=== PATIENT | male | born 1950 | race African-American/Black ===

== ENCOUNTER → 2018-12-04 | Outpatient (CLI) | payer OTHER, BC ==
[~2018-12-04] VITALS: Ht 175.3 cm; Wt 88.2 kg
[~2018-12-04] MED LIST: ALEVE220 M1 PO; ALEVE220 MG PO; AMBEREN PO; ATORVASTATIN CA10 MG PO; AVAPRO300 MG PO; CADUET 10 MG-11 EACH PO; DIOVAN320 MG PO; LOSARTAN-HCTZ1 EAC2 PO; MICARDIS 20MG T20 M1 PO; TOPROL XL25 MG PO
--- NOTE | ~2018-12-04 | HPC ---
[facility] [place] [address] PAIN MANAGEMENT CONSULTATION Name: DORINDA DUNN Room #: REG Roni JensenMaura#: [id number] Admission: 12/04/18 Attend Phys: Garry Hong DO Discharge: Date of : 54 Report #: [id number] THIS REPORT FOR: //name// CC: Garry Schroeder MD DATE OF SERVICE: 12/04/2018 REFERRING PHYSICIAN: Tanja Schroeder M.D. CHIEF COMPLAINT: Low back pain and right lower extremity pain with paresthesias. HISTORY OF PRESENT ILLNESS: As you know, the patient is a 68-year-old male who returns today in followup visit per the request of his PCP to undergo lumbar epidural injection under fluoroscopic guidance. The patient has had progressively worsening pain involving low back and right lower extremity. He indicates the pain is burning, sharp, numbness, tingling, electrical sore and intermittent when presenting. It is improved with Aleve, Aspercreme and rest. Pain tends to be exacerbated by simple activity. He has pain levels anywhere from 4-10/10 prior to his visit to the clinic today. He has returned requesting a lumbar epidural injection to address lumbar radicular symptoms. The patient denies new injury, trauma or any major changes in medical history since our last visit. ALLERGIES: No known drug allergies. CURRENT MEDICATIONS: Irbesartan 300 mg once a day, naproxen sodium 220 mg 3 times a day, metoprolol 25 mg once a day, atorvastatin 10 mg per day, multivitamin 1 tab per day and Caduet 10/10 mg 1 tab p.o. every day. SOCIAL HISTORY: The patient denies tobacco, alcohol or IV or illicit drug use. He is unaccompanied today. IMAGING DATA: No new imaging available. PQRS: The patient has no known osteoarthritic changes. He is not treated for hypertension. He is placing pain intensity anywhere from 3-5/10. He is not a fall risk, has not the last 3 months. He is not on blood thinners but is treated for hypertension. He is not on chronic opioids, has a low opioid addiction potential. He is placing his pain impact score at 10/70, mild interference of daily activities secondary to pain. PHYSICAL EXAMINATION: VITAL SIGNS: Blood pressure 130/78, pulse 57 and respiratory rate 16 and [facility] [address] [place] [address] PAIN MANAGEMENT CONSULTATION Name: DORINDA DUNN Room #: REG [facility].#: [id number] Admission: 12/04/18 Attend Phys: Garry Hong DO Discharge: Date of : 54 Report #: [id number] unlabored. The patient is 100% on room air. Height 5 feet 9 inches tall, weight 194.4 pounds and BMI calculated 28.7. GENERAL: Well-developed, well-nourished, well-hydrated 68-year-old male appearing stated age, placing current pain score anywhere from 3-5/10 depending on activity. HEENT: Normocephalic and atraumatic. Pupils equal, round and reactive to light. Extraocular muscles are intact. Speech is fluent. EXTREMITIES: Show no clubbing, no cyanosis and no edema. MUSCULOSKELETAL: Lower extremity strength appears symmetrical again today 5/5. Muscle bulk and tone is symmetrical in comparing left lower extremity over right. Seated straight leg raising negative. Supine straight leg raising positive. Ramez's test negative. Modified Gaenslen's positive for axial low back pain. Ankle clonus negative. Babinski is negative. ASSESSMENT: 1. Symptomatic lumbar radiculopathy. 2. Lumbosacral spondylosis with radiculopathy. 3. Lumbar degeneration. 4. Chronic intractable pain. PLAN: 1. The patient returns today in followup visit per the request of his PCP to undergo a lumbar epidural injection to address radicular symptoms for which he places pain anywhere from 3-5/10. The patient and I discussed at length the risks and benefits of this procedure. These risks include but are not necessarily limited to bleeding, bruising, infection, worsening pain, no relief of pain, also risk of temporary or permanent muscle weakness, temporary or permanent nerve damage, possible paralysis and . The patient states understood and wished to proceed. 2. No medication changes made at today's visit. The patient will continue current medical therapy as previously prescribed. 3. We will see the patient back in followup visit on an as needed basis for the possible next in the series of lumbar epidural injections to address lumbar radicular symptoms involving right lower extremity. PROCEDURE NOTE DESCRIPTION OF PROCEDURE: Lumbar epidural steroid injection under fluoroscopic guidance. After obtaining written consent, the patient was taken back to fluoroscopy suite, placed in prone position with pillow under abdomen to decrease lumbar lordosis. Skin overlying the lumbosacral area then prepped and draped in aseptic fashion. The L5-S1 vertebral interspace identified by AP fluoroscopy. Skin and subcutaneous tissue overlying target site of injection was anesthetized with 3 mL of 1% lidocaine. [address] [address] PAIN MANAGEMENT CONSULTATION Name: DORINDA DUNN Room #: REG MISTY Chow#: [id number] Admission: 12/04/18 Attend Phys: Garry Hong DO Discharge: Date of : 54 Report #: [id number] A 20-gauge 3-1/2 inch Tuohy needle advanced under fluoroscopic guidance towards the epidural space using right paramedian approach. Epidural space identified using loss of resistance to air technique. After negative aspiration for heme or cerebrospinal fluid, 1 mL of Omnipaque injected. Lumbar epidurogram confirmed using both AP and lateral fluoroscopy. After negative aspiration for heme or cerebrospinal fluid, 5 mL of a solution containing 2 mL 40 mg per mL, 80 mg total triamcinolone and 3 mL lidocaine 1% injected slowly. Needle retracted chcf, flushed with 1 mL of 1% lidocaine and removed. Sterile bandage placed over injection site. No new motor deficits present in the lower extremities following procedure. The patient tolerated the procedure well, carefully escorted to recovery room in stable condition. No apparent complications. After meeting discharge criteria, the patient discharged home. By: [id number] Garry Hong DO /nt
[2018-12-04 11:01] VITALS: BP 138/78
--- NOTE | 2018-12-04 11:09 | NUR ---
Pain Clinic Assessment: 1. History of Osteoarthritis: History of Rheumatoid Arthritis: 2. Height: 5 ft. 9 in. 175.3 cm. Weight: 194.4 lb. oz. 88.179 kg. Patient's BMI: 28.7 3. Vital Signs: BP: 138/78 Pulse: 57 Resp: 16 Temp: 02 Sat: 100 ECG Mon: 4. Pain Intensity: 0 5. Fall Risk: Dizziness: N Needs help standing or walking: N Fallen in the last 3 months: N Fall risk comments: 6. Patient on Blood Thinner: None 7. History of Hypertension: Y 8. Opioid Therapy greater than 6 weeks: Opiate Contract Signed: 9. Risk Assessment Tool Provided: LOW 10. Functional Assessment Tool: 11. Recreational Drug Use: Never Drug Type: Tobacco Use: Never Smoker Tobacco Type: Amount or Packs/day: How Many Years: Alcohol Use: Yes Frequency: Weekly Quant: 4
== END | disposition home or self-care (01) ==
LOC: PAIN 07:01
DX: M51.16 Intervertebral disc disorders with radiculopathy, lumbar region (principal); M47.27 Other spondylosis with radiculopathy, lumbosacral region; G89.29 Other chronic pain; M19.90 Unspecified osteoarthritis, unspecified site; I10 Essential (primary) hypertension; Z79.899 Other long term (current) drug therapy

== ENCOUNTER → 2019-06-11 | Outpatient (CLI) | payer OTHER, BC ==
[~2019-06-11] VITALS: Ht 175.3 cm; Wt 87.3 kg
[~2019-06-11] MED LIST changes: +NORVASC10 MG PO
--- NOTE | ~2019-06-11 | HPC ---
[facility] [place] [address] PAIN MANAGEMENT CONSULTATION Name: DORINDA DUNN Room #: REG MISTY CharlesMauraDimaMaura#: [id number] Admission: 06/11/19 ������������������ Attend Phys: Garry Hong DO Discharge: ������������������ Date of : 54 Report #: [id number] THIS REPORT FOR: //name// CC: Garry Schroeder MD DATE OF SERVICE: 06/11/2019 REFERRING PHYSICIAN: Tanja Schroeder M.D. CHIEF COMPLAINT: Low back pain, right lower extremity pain with paresthesias and intermittent left lower extremity pain with paresthesias. HISTORY OF PRESENT ILLNESS: As you know, the patient is a very pleasant 68-year-old male who returns today in followup visit to undergo next in the series of lumbar epidural injections under fluoroscopic guidance. The patient is reporting pain score around 6/10 today. He denies any injury or trauma that may have led to symptom reoccurrence. He believes his symptoms began after bending over to tie his right shoe. He states his pain radiates from the back down to the right buttock and all the way down the posterior lateral thigh to the calf. He describes the pain as chronic burning, sharp, numbness, tingling, electrical, sore and intermittent in sensation. He places pain score at 6/10. States that previous epidural injections have been the most effective treatment option giving up to 95% improvement in overall pain lasting for 6 months. He returns today in followup visit for the next in the series of lumbar epidural injections to address recurrent lumbar radicular pain. ALLERGIES: No known drug allergies. CURRENT MEDICATIONS: Multivitamin 1 tab per day, atorvastatin 10 mg per day, metoprolol 25 mg once a day, naproxen 220 mg p.r.n., Avapro 300 mg per day and amlodipine 10 mg per day. SOCIAL HISTORY: The patient denies tobacco, alcohol or IV or illicit drug use. He is unaccompanied today. IMAGING DATA: No new imaging available. PHYSICAL EXAMINATION: VITAL SIGNS: Blood pressure 128/87, pulse is 60 and respiratory rate 16 and unlabored. The patient is 100% on room air. Height 5 feet 9 inches tall, weight 192.4 pounds and BMI calculated 28.4. GENERAL: Well-developed, well-nourished, well-hydrated 68-year-old male appearing stated age, placing current pain score 6/10. HEENT: Normocephalic and atraumatic. Pupils equal, [place] [address] PAIN MANAGEMENT CONSULTATION Name: DORINDA DUNN Room #: REG [facility]#: [id number] Admission: 06/11/19 ������������������ Attend Phys: Garry Hong DO Discharge: ������������������ Date of : 54 Report #: [id number] light. EXTREMITIES: Show no clubbing, no cyanosis and no edema. MUSCULOSKELETAL: Lower extremity strength is symmetrical 5/5. Slight giveaway strength noted with hip flexion, knee extension on the right when compared to left due to pain generation. Seated straight leg raising positive right. Supine straight leg raising positive right. Ramez's test negative. Gait antalgic favoring right lower extremity over left. He is using a cane for ambulation today. ASSESSMENT: 1. Symptomatic lumbar radiculopathy. 2. Lumbosacral spondylosis with radiculopathy. 3. Lumbar degeneration. 4. Chronic intractable pain. PLAN: 1. The patient returns today in followup visit with recurrent lumbar radicular symptoms. He received a near 6-month improvement in overall pain up to 95% with the previous epidural injection. He returns today in followup visit to undergo next in the series of lumbar epidural injections to address recurrent lumbar pain. The patient has been advised risks and benefits of the procedure, states understood and wished to proceed. 2. No medication changes made at today's visit. The patient will continue current medical therapy as previously prescribed. 3. We will see the patient back in followup visit on an as needed basis for possible next in the series of epidural injections. PROCEDURE NOTE DESCRIPTION OF PROCEDURE: L5-S1 right paramedian epidural steroid injection under fluoroscopic guidance. After obtaining written consent, the patient was taken back to fluoroscopy suite, placed in prone position with pillow under abdomen to decrease lumbar lordosis. Skin overlying lumbosacral area then prepped and draped in aseptic fashion. The L5-S1 vertebral interspace was identified by AP fluoroscopy. Skin and subcutaneous tissue overlying target site of injection was anesthetized with 3 mL of 1% lidocaine. A 20-gauge 3-1/2 inch Tuohy needle advanced under fluoroscopic guidance towards the epidural space using right paramedian approach. Epidural space identified using loss of resistance to air technique. After negative aspiration for heme or cerebrospinal fluid, 1 mL of Omnipaque injected. Lumbar epidurogram confirmed using both AP and lateral fluoroscopy. After negative aspiration for heme or cerebrospinal fluid, 5 mL of a solution containing 2 mL 40 mg per mL, 80 mg total triamcinolone, 3 mL lidocaine 1% injected slowly. Needle retracted [address] [address] PAIN MANAGEMENT CONSULTATION Name: DORINDA DUNN Room #: REG CLRoni Jensen#: [id number] Admission: 06/11/19 ������������������ Attend Phys: Garry Hong DO Discharge: ������������������ Date of : 54 Report #: [id number] retirement, flushed with 1 mL of 1% lidocaine and then removed. Sterile bandage placed over injection site. No new motor deficits present in lower extremity following procedure. The patient tolerated procedure well, carefully escorted to the recovery room in stable condition. No apparent complications. After meeting discharge criteria, the patient discharged home. ��������������������������������������������� ���������������������������������������� By: ��������������������������������������������� [id number] Garry Hong DO /nt
[2019-06-11 08:07] VITALS: BP 128/87
--- NOTE | 2019-06-11 08:17 | NUR ---
Pain Clinic Assessment: 1. History of Osteoarthritis: NONE History of Rheumatoid Arthritis: NONE 2. Height: 5 ft. 9 in. 175.3 cm. Weight: 192.4 lb. oz. 87.272 kg. Patient's BMI: 28.4 3. Vital Signs: BP: 128/87 Pulse: 60 Resp: 16 Temp: 02 Sat: 100 ECG Mon: 4. Pain Intensity: 6 5. Fall Risk: Dizziness: N Needs help standing or walking: N Fallen in the last 3 months: N Fall risk comments: 6. Patient on Blood Thinner: None 7. History of Hypertension: Y 8. Opioid Therapy greater than 6 weeks: Opiate Contract Signed: 9. Risk Assessment Tool Provided: LOW 10. Functional Assessment Tool: 11. Recreational Drug Use: Never Drug Type: Tobacco Use: Never Smoker Tobacco Type: Amount or Packs/day: How Many Years: Alcohol Use: Yes Frequency: Quant:
== END | disposition home or self-care (01) ==
LOC: PAIN 07:40
DX: M51.16 Intervertebral disc disorders with radiculopathy, lumbar region (principal); M47.27 Other spondylosis with radiculopathy, lumbosacral region; G89.29 Other chronic pain; Z79.899 Other long term (current) drug therapy; Z98.890 Other specified postprocedural states